=== PATIENT | male | born 1975 ===

== ENCOUNTER 2022-10-25 09:07 | Inpatient (IN) ==
[2022-10-25 09:20] LABS: POC Calcium, Ionized 1.13 (1.16-1.32); POC Creatinine 5.3 (0.6-1.2); POC Potassium 3.7 (3.3-5.1)
[2022-10-25 10:29] LABS: POC INR 1.2 (0.8-1.2); POC Pro Time 14.1 (11.9-14.5)
[2022-10-25 10:49] LABS: Appearance,Urine CLEAR (Clear); Bilirubin,Urine Negative (Negative); Color,Urine STRAW; Culture Indicated,Urine No; Glucose,Urine (UA) Negative (Negative); Ketones,Urine Negative (Negative); Leukocyte Esterase,Urine Negative /uL (Negative); Mucus,Urine FEW /hpf; Nitrate,Urine Negative (Negative); Protein,Urine 100 mg/dL (Negative); Specific Gravity,Urine 1.009 (1.000-1.035); Urine RBC 8 /hpf (0-3); Urine Squamous Epithelial Cell < 1 /hpf (0-4); Urine WBC 2 /hpf (0-4); Urobilinogen,Urine Negative
[2022-10-25 10:52] LABS: Amphetamine Screen,Urine None detected; Barbiturate Screen,Urine None detected; Benzodiazepines Screen,Urine None detected; Cannabinoid Screen,Urine None detected; Cocaine Screen,Urine None detected; Opiate Screen,Urine None detected; Oxycodone, Urine Screen None detected; Phencyclidine Screen,Urine None detected
[2022-10-25 11:15] LABS: Basophils # (Auto) 0.04 K/mcL (0.00-0.30); Basophils % (Auto) 0.4 % (0.0-2.0); Eosinophils # (Auto) 0 K/mcL (0.00-0.70); Eosinophils % (Auto) 0 % (0.0-7.0); Hematocrit 38.6 % (40.1-51.0); Hemoglobin 12.8 g/dL (13.7-17.5); Lymphocytes # (Auto) 1.89 K/mcL (1.50-4.80); Mean Corpuscular HGB Conc 33.2 g/dL (31.0-36.0); Mean Platelet Volume 9.9 fL (8.8-12.5); Monocytes # (Auto) 0.81 K/mcL (0.10-0.90); Monocytes % (Auto) 8.6 % (1.0-12.0); Neutrophils % (Auto) 70.8 % (38.0-78.0); Platelet Count 224 K/mcL (140-440); RBC 4.15 M/mcL (4.63-6.08); Red Cell Distribution Width 13.2 % (11.5-14.5); WBC 9.5 K/mcL (4.5-11.0)
[2022-10-25 11:37] LABS: ALT/SGPT 5 U/L (<40); AST/SGOT 14 U/L (<40); Alkaline Phosphatase 83 U/L (39-117); Bilirubin,Direct < 0.2 mg/dL (0-0.3); Bilirubin,Total 0.2 mg/dL (0.1-1.0); Globulin 3.2 gm/dL (2.2-3.7)
[2022-10-25] MEDS ORDERED: ASPIRIN 81 MG TAB.CHEW CHEWED ONE (13:02)
[2022-10-25] MEDS ORDERED: 0.9 % SODIUM CHLORIDE 1,000 ML IV ONE (13:24)
[2022-10-25 14:49] LABS: Blood Urea Nitrogen 28 mg/dL (6-20); Calcium 8.7 mg/dL (8.6-10.4); Carbon Dioxide 18 mmol/L (22-30); Chloride 105 mmol/L (96-108); Glomerular Filtration Rate 16; Glucose 78 mg/dL (70-105)
[2022-10-25] MEDS ORDERED: ACETAMINOPHEN 325 MG TABLET PO PRN (17:29)
[2022-10-25] MEDS ORDERED: DEXTROSE 50% 50 ML VIAL IV PRN (17:29)
[2022-10-25] MEDS ORDERED: DEXTROSE 31 GM ORAL.SUSP PO PRN (17:29)
[2022-10-25] MEDS ORDERED: LABETALOL 5 MG/ML ML IV PRN (17:37)
[2022-10-25] MEDS: INSULIN LISPRO 1 UNIT/0.01 ML UNIT SQ SCH ×2 (18:10→21:10)
[2022-10-25] MEDS: LACTATED RINGERS 1,000 ML IV SCH ×2 (18:11→23:44)
[2022-10-25 18:35] LABS: Prothrombin Time 13.5 sec (11.9-14.5)
[2022-10-25 18:46] LABS: Creatine Kinase 102 U/L (24-195); Phosphorous 4.1 mg/dL (2.5-4.5)
[2022-10-25 20:35] LABS: Appearance,Urine CLEAR (Clear); Bilirubin,Urine Negative (Negative); Color,Urine STRAW; Culture Indicated,Urine No; Glucose,Urine (UA) Negative (Negative); Ketones,Urine Negative (Negative); Leukocyte Esterase,Urine Negative /uL (Negative); Mucus,Urine FEW /hpf; Nitrate,Urine Negative (Negative); Protein,Urine 100 mg/dL (Negative); Specific Gravity,Urine 1.008 (1.000-1.035); Urine RBC 19 /hpf (0-3); Urine Squamous Epithelial Cell 0 /hpf (0-4); Urine WBC 1 /hpf (0-4); Urobilinogen,Urine Negative
[2022-10-25 20:43] LABS: Amphetamine Screen,Urine None detected; Barbiturate Screen,Urine None detected; Benzodiazepines Screen,Urine None detected; Cannabinoid Screen,Urine None detected; Cocaine Screen,Urine None detected; Opiate Screen,Urine None detected; Oxycodone, Urine Screen None detected; Phencyclidine Screen,Urine None detected
[2022-10-25] MEDS: Lacosamide 100 mg tablet PO SCH ×2 (21:05)
[2022-10-25] MEDS: LEVETIRACETAM 500 MG PO SCH (21:06)
[2022-10-25] MEDS: ZONISAMIDE 100 MG PO SCH (21:07)
[2022-10-25] MEDS: 0.9 % SODIUM CHLORIDE 10 ML SYRINGE IV SCH (21:07)
[2022-10-25] MEDS: HEPARIN 5,000 UNIT/ML VIAL SQ SCH (21:20)
[2022-10-26] MEDS: LACTATED RINGERS 1,000 ML IV SCH ×5 (04:57→22:28)
[2022-10-26] MEDS: 0.9 % SODIUM CHLORIDE 10 ML SYRINGE IV SCH ×3 (05:12→21:25)
[2022-10-26 07:08] LABS: Hematocrit 35.6 % (40.1-51.0); Hemoglobin 11.5 g/dL (13.7-17.5); Mean Cell Volume 96.7 fL (80.0-100.0); Mean Corpuscular HGB Conc 32.3 g/dL (31.0-36.0); Mean Platelet Volume 9.6 fL (8.8-12.5); Platelet Count 186 K/mcL (140-440); RBC 3.68 M/mcL (4.63-6.08); Red Cell Distribution Width 13.1 % (11.5-14.5); WBC 7.9 K/mcL (4.5-11.0)
[2022-10-26] MEDS: INSULIN LISPRO 1 UNIT/0.01 ML UNIT SQ SCH ×4 (07:16→21:21)
[2022-10-26 08:12] LABS: Blood Urea Nitrogen 28 mg/dL (6-20); Calcium 8.4 mg/dL (8.6-10.4); Carbon Dioxide 18 mmol/L (22-30); Chloride 112 mmol/L (96-108); Glomerular Filtration Rate 17; Glucose 78 mg/dL (70-105)
[2022-10-26] MEDS: CLOPIDOGREL 75 MG TABLET PO SCH (08:58)
[2022-10-26] MEDS: ASPIRIN 325 MG ENTERIC COATED TABLET PO SCH (08:58)
[2022-10-26] MEDS: LEVETIRACETAM 500 MG PO SCH ×2 (08:59→21:23)
[2022-10-26] MEDS: ZONISAMIDE 100 MG PO SCH ×2 (08:59→21:22)
[2022-10-26] MEDS: Lacosamide 100 mg tablet PO SCH ×2 (08:59→21:24)
[2022-10-26] MEDS: HEPARIN 5,000 UNIT/ML VIAL SQ SCH ×2 (09:04→21:21)
[2022-10-26 09:23] LABS: Lymphocytes % 16 % (15-49); Monocytes % (Manual) 6 % (1-12); Platelet Estimate NORMAL (Normal); RBC Morphology NORMAL (Normal); Segmented Neutrophils % 78 % (38-78)
[2022-10-26 17:01] LABS: Albumin PEP 2.92 gm/dL (3.10-4.70); Albumin/Globulin Ratio PEP 1.1 RATIO (0.9-1.7); Alpha-1-Globulins 0.24 gm/dL (0.10-0.50); Alpha-2-Globulins 0.63 gm/dL (0.40-1.20); Beta Globulins 1.03 gm/dL (0.60-1.20); Gamma Globulins 0.77 gm/dL (0.50-1.70); Globulin PEP 2.7 gm/dL (2.4-3.6); Total Protein PEP 5.6 gm/dL (5.9-8.4)
[2022-10-26 19:22] LABS: Complement C3 122.5 mg/dL (90.0-180.0)
[2022-10-26 22:50] LABS: Blood Urea Nitrogen 28 mg/dL (6-20); Calcium 8.1 mg/dL (8.6-10.4); Carbon Dioxide 18 mmol/L (22-30); Chloride 111 mmol/L (96-108); Glomerular Filtration Rate 17; Glucose 88 mg/dL (70-105)
[2022-10-27] MEDS: LACTATED RINGERS 1,000 ML IV SCH ×4 (03:09→19:06)
[2022-10-27] MEDS: 0.9 % SODIUM CHLORIDE 10 ML SYRINGE IV SCH ×3 (05:35→20:56)
[2022-10-27 06:51] LABS: Hematocrit 32.2 % (40.1-51.0); Hemoglobin 10.6 g/dL (13.7-17.5); Mean Cell Volume 94.4 fL (80.0-100.0); Mean Corpuscular HGB Conc 32.9 g/dL (31.0-36.0); Mean Platelet Volume 9.6 fL (8.8-12.5); Platelet Count 163 K/mcL (140-440); RBC 3.41 M/mcL (4.63-6.08); Red Cell Distribution Width 13.1 % (11.5-14.5); WBC 6.5 K/mcL (4.5-11.0)
[2022-10-27 07:27] LABS: Blood Urea Nitrogen 29 mg/dL (6-20); Calcium 8.3 mg/dL (8.6-10.4); Carbon Dioxide 18 mmol/L (22-30); Chloride 115 mmol/L (96-108); Glomerular Filtration Rate 18; Glucose 73 mg/dL (70-105)
[2022-10-27] MEDS: CLOPIDOGREL 75 MG TABLET PO SCH (08:23)
[2022-10-27] MEDS: ASPIRIN 325 MG ENTERIC COATED TABLET PO SCH (08:23)
[2022-10-27] MEDS: ZONISAMIDE 100 MG PO SCH ×2 (08:24→20:53)
[2022-10-27] MEDS: Lacosamide 100 mg tablet PO SCH ×2 (08:24→20:52)
[2022-10-27] MEDS: LEVETIRACETAM 500 MG PO SCH ×2 (08:24→20:53)
[2022-10-27] MEDS: INSULIN LISPRO 1 UNIT/0.01 ML UNIT SQ SCH (08:26)
[2022-10-27] MEDS: HEPARIN 5,000 UNIT/ML VIAL SQ SCH ×2 (09:54→20:51)
[2022-10-27 13:10] LABS: Basophils % (Manual) 1 % (0-2); Lymphocytes % 23 % (15-49); Monocytes % (Manual) 3 % (1-12); Platelet Estimate NORMAL (Normal); RBC Morphology NORMAL (Normal); Segmented Neutrophils % 73 % (38-78)
[2022-10-28] MEDS: LACTATED RINGERS 1,000 ML IV SCH ×5 (00:14→20:46)
[2022-10-28] MEDS: 0.9 % SODIUM CHLORIDE 10 ML SYRINGE IV SCH ×3 (05:20→20:48)
[2022-10-28 06:36] LABS: Hematocrit 30.5 % (40.1-51.0); Hemoglobin 9.9 g/dL (13.7-17.5); Mean Cell Volume 96.8 fL (80.0-100.0); Mean Corpuscular HGB Conc 32.5 g/dL (31.0-36.0); Mean Platelet Volume 9.8 fL (8.8-12.5); Platelet Count 145 K/mcL (140-440); RBC 3.15 M/mcL (4.63-6.08); Red Cell Distribution Width 13.2 % (11.5-14.5); WBC 6.2 K/mcL (4.5-11.0)
[2022-10-28 07:07] LABS: Blood Urea Nitrogen 31 mg/dL (6-20); Calcium 8.1 mg/dL (8.6-10.4); Carbon Dioxide 20 mmol/L (22-30); Chloride 112 mmol/L (96-108); Glomerular Filtration Rate 19; Glucose 76 mg/dL (70-105)
[2022-10-28 08:50] LABS: Band Neutrophils % 2 % (0-10); Lymphocytes % 26 % (15-49); Monocytes % (Manual) 3 % (1-12); Platelet Estimate NORMAL (Normal); RBC Morphology NORMAL (Normal); Segmented Neutrophils % 69 % (38-78)
[2022-10-28] MEDS: Lacosamide 100 mg tablet PO SCH ×2 (09:04→20:47)
[2022-10-28] MEDS: ASPIRIN 325 MG ENTERIC COATED TABLET PO SCH (09:04)
[2022-10-28] MEDS: HEPARIN 5,000 UNIT/ML VIAL SQ SCH ×2 (09:04→20:46)
[2022-10-28] MEDS: CLOPIDOGREL 75 MG TABLET PO SCH (09:04)
[2022-10-28] MEDS: LEVETIRACETAM 500 MG PO SCH ×2 (09:05→20:46)
[2022-10-28] MEDS: ZONISAMIDE 100 MG PO SCH ×2 (09:05→20:47)
[2022-10-28] MEDS: DILTIAZEM 120 MG CAP.XL.24H PO SCH (10:38)
[2022-10-29] MEDS: LACTATED RINGERS 1,000 ML IV SCH ×3 (02:25→07:53)
[2022-10-29] MEDS: 0.9 % SODIUM CHLORIDE 10 ML SYRINGE IV SCH ×3 (06:15→20:56)
[2022-10-29 06:56] LABS: Hematocrit 30.4 % (40.1-51.0); Hemoglobin 9.8 g/dL (13.7-17.5); Mean Cell Volume 95.3 fL (80.0-100.0); Mean Corpuscular HGB Conc 32.2 g/dL (31.0-36.0); Mean Platelet Volume 9.9 fL (8.8-12.5); Platelet Count 144 K/mcL (140-440); RBC 3.19 M/mcL (4.63-6.08); Red Cell Distribution Width 13.1 % (11.5-14.5); WBC 7.1 K/mcL (4.5-11.0)
[2022-10-29 07:26] LABS: Blood Urea Nitrogen 27 mg/dL (6-20); Calcium 7.6 mg/dL (8.6-10.4); Carbon Dioxide 18 mmol/L (22-30); Chloride 112 mmol/L (96-108); Glomerular Filtration Rate 22; Glucose 70 mg/dL (70-105)
[2022-10-29] MEDS: ASPIRIN 325 MG ENTERIC COATED TABLET PO SCH (08:02)
[2022-10-29] MEDS: LEVETIRACETAM 500 MG PO SCH ×2 (08:02→20:54)
[2022-10-29] MEDS: CLOPIDOGREL 75 MG TABLET PO SCH (08:02)
[2022-10-29] MEDS: DILTIAZEM 120 MG CAP.XL.24H PO SCH (08:02)
[2022-10-29] MEDS: ZONISAMIDE 100 MG PO SCH (08:03)
[2022-10-29] MEDS: Lacosamide 100 mg tablet PO SCH ×2 (08:03→20:55)
[2022-10-29 08:58] LABS: Lymphocytes % 21 % (15-49); Monocytes % (Manual) 5 % (1-12); Platelet Estimate NORMAL (Normal); RBC Morphology NORMAL (Normal); Segmented Neutrophils % 74 % (38-78)
[2022-10-29] MEDS ORDERED: DILTIAZEM 180 MG CAP.XL.24H PO SCH (09:00)
[2022-10-29] MEDS: LABETALOL 5 MG/ML ML IV PRN ×2 (09:23→11:14)
[2022-10-29] MEDS: HEPARIN 5,000 UNIT/ML VIAL SQ SCH ×2 (09:24→20:54)
[2022-10-29] MEDS: TOPIRAMATE 25 MG TABLET PO SCH (09:28)
[2022-10-29] MEDS ORDERED: amLODIPine 5 MG TABLET PO SCH (10:21)
[2022-10-30] MEDS: 0.9 % SODIUM CHLORIDE 10 ML SYRINGE IV SCH ×2 (05:47→13:33)
[2022-10-30 06:53] VITALS: O2SAT 100
[2022-10-30] MEDS: CLOPIDOGREL 75 MG TABLET PO SCH (08:09)
[2022-10-30] MEDS: ASPIRIN 325 MG ENTERIC COATED TABLET PO SCH (08:09)
[2022-10-30] MEDS: DILTIAZEM 120 MG CAP.XL.24H PO SCH (08:09)
[2022-10-30] MEDS: LEVETIRACETAM 500 MG PO SCH (08:10)
[2022-10-30] MEDS: Lacosamide 100 mg tablet PO SCH (08:10)
[2022-10-30] MEDS: HEPARIN 5,000 UNIT/ML VIAL SQ SCH (08:15)
[2022-10-30] MEDS ORDERED: amLODIPine 5 MG TABLET PO SCH (09:00)
[2022-10-30] MEDS: LABETALOL 5 MG/ML ML IV PRN (09:25)
[2022-10-30 09:27] LABS: DNA Antibody DS <1 IU/mL (0-9)
[2022-10-30 09:40] LABS: ALT/SGPT 12 U/L (<40); AST/SGOT 20 U/L (<40); Albumin 3.4 gm/dL (3.2-5.2); Alkaline Phosphatase 75 U/L (39-117); Bilirubin,Total 0.2 mg/dL (0.1-1.0); Blood Urea Nitrogen 30 mg/dL (6-20); Calcium 8.3 mg/dL (8.6-10.4); Carbon Dioxide 18 mmol/L (22-30); Chloride 109 mmol/L (96-108); Globulin 3.3 gm/dL (2.2-3.7); Glomerular Filtration Rate 17; Glucose 97 mg/dL (70-105)
[2022-10-30 12:17] VITALS: TEMP 98.1
[2022-10-30] MEDS: TOPIRAMATE 25 MG TABLET PO SCH (12:37)
[2022-10-30 13:31] LABS: Hepatitis C Virus Antibody NON-REACTIVE (NON-REACTIVE)
[2022-11-01 17:06] LABS: Myeloperoxidase Antibody <1.0 AI (<1.0)
[2022-11-07 15:24] LABS: Anti-Glomerular Basement Memb <20 Units (<20)
== END 2022-10-30 14:23 | disposition home or self-care (01) | DRG 65 ==
LOC: ED 09:07 → ICU 17:11
PROVIDERS: ADMIT Internal Medicine Critical Care Medicine; ATTEND Internal Medicine Critical Care Medicine